=== PATIENT | female | born 1980 | race Caucasian/White ===

== ENCOUNTER 2024-04-14 20:35 | Emergency (ER) | payer OTHER ==
[2024-04-14] MEDS: Doxycycline Monohydrate 100 MG Cap PO ONE (22:53)
[2024-04-14 22:59] LABS: CORONAVIRUS COVID-19 NAA NEGATIVE (NEGATIVE); INFLUENZA A NAA NEGATIVE (NEGATIVE); RESPIRATORY SYNCYTIAL VIR NAA NEGATIVE (NEGATIVE)
== END 2024-04-14 22:54 | disposition home or self-care (01) ==
LOC: JD.ED 20:35
DX: S80.862A Insect bite (nonvenomous), left lower leg, initial encounter (principal); Z79.899 Other long term (current) drug therapy; Z88.1 Allergy status to other antibiotic agents; Z88.8 Allergy status to other drugs, medicaments and biological substances; W57.XXXA Bitten or stung by nonvenomous insect and other nonvenomous arthropods, initial encounter
CPT/HCPCS: 0241U; 99283; A9270